=== PATIENT | male | born 1955 | race Two or more races ===

== ENCOUNTER 2019-09-27 10:35 | Inpatient (IN) | payer MEDICARE, MEDICAID ==
[~2019-09-27] VITALS: Ht 167.6 cm; Wt 90.7 kg
[2019-09-27] MEDS ORDERED: ONDANSETRON HCL 4MG/2ML INJ IV STA (11:17)
[2019-09-27] MEDS ORDERED: MORPHINE SULFATE 4 MG/ML CPJ (NOT FOR IM USE) IV STA (11:17)
[2019-09-27] MEDS ORDERED: VANCOMYCIN 1 G PREMIX 200 ML IV ONE (11:30)
[2019-09-27] MEDS ORDERED: PIPERACILLIN/TAZ 3.375G PREMIX 50 ML IV ONE (11:30)
[2019-09-27] MEDS ORDERED: SODIUM CHLORIDE 0.9% 1000ML BAG (SEPSIS BOLUS) IV ONE (11:30)
[2019-09-27 12:12] LABS: INR 0.9; PROTHROMBIN TIME 10.1 sec (9.6-11.0)
[2019-09-27 12:14] LABS: BASOPHILS % 0.5 % (0.0-2.0); EOSINOPHILS % 0.5 % (0.0-5.0); HEMATOCRIT. 35.8 % (42.0-52.0); HEMOGLOBIN. 12.4 g/dL (14.0-18.0); LYMPHOCYTES % 9.9 % (20.0-50.0); MEAN CORPUSCULAR VOLUME 89.5 fL (80.0-94.0); MONOCYTES % 11.5 % (2.0-8.0); NEUTROPHILS % 77.6 % (40.0-76.0); PLATELET 267 x1000/uL (130-400); RED CELL DISTRIBUTION WIDTH 11.8 % (11.6-14.6)
[2019-09-27 12:19] LABS: CHLORIDE 107 mEq/L (98-107)
[2019-09-27 12:34] LABS: CLARITY URINE CLEAR (CLEAR); COLOR URINE YELLOW (YELLOW); KETONES URINE NEGATIVE (NEGATIVE); LEUKOCYTE ESTERASE URINE NEGATIVE (NEGATIVE); NITRITE URINE NEGATIVE (NEGATIVE); OCCULT BLOOD URINE NEGATIVE (NEGATIVE); PROTEIN URINE NEGATIVE (NEGATIVE); SPECIFIC GRAVITY URINE 1.018 (1.005-1.030)
[2019-09-27] MEDS ORDERED: KETOROLAC 30MG/ML VIAL IV ONE (12:45)
[2019-09-27] MEDS ORDERED: MORPHINE SULFATE 2 MG/ML CPJ (NOT FOR IM USE) IV PRN (13:00)
[2019-09-27] MEDS ORDERED: ACETAMINOPHEN 325MG TABLET PO PRN ×2 (13:00→23:00)
[2019-09-27] MEDS ORDERED: ONDANSETRON HCL 4MG/2ML INJ IV PRN ×2 (13:00→23:00)
[2019-09-27] MEDS: HYDROCODONE/ACETAMINOPHEN 10/325MG TABLET PO PRN ×2 (16:12→23:56)
[2019-09-27] MEDS ORDERED: LORAZEPAM 2MG/ML CPJ IV PRN (23:00)
[2019-09-27] MEDS ORDERED: CLONIDINE 0.1MG TABLET PO PRN (23:00)
[2019-09-28] MEDS ORDERED: VANCOMYCIN 1 G PREMIX 200 ML IV NR (01:30)
[2019-09-28] MEDS ORDERED: ENOXAPARIN 40MG/0.4ML SYR SUBCUT SCH (01:30)
[2019-09-28] MEDS: SODIUM CHLORIDE 0.9% 1,000 ML IV SCH ×2 (02:06→22:35)
[2019-09-28 04:00] VITALS: BP 124/88
[2019-09-28 04:25] VITALS: BP 124/88
[2019-09-28] MEDS: HYDROCODONE/ACETAMINOPHEN 10/325MG TABLET PO PRN (05:00)
[2019-09-28] MEDS ORDERED: CARV25TA47 MT (05:15)
[2019-09-28] MEDS ORDERED: ASPI-1497 MT (05:15)
[2019-09-28] MEDS ORDERED: ESOM40CA MT (05:15)
[2019-09-28 08:00] VITALS: BP 135/90
[2019-09-28 08:18] LABS: *AMPHETAMINES SCREEN URINE NEGATIVE (NEGATIVE); *BARBITURATES SCREEN URINE NEGATIVE (NEGATIVE); *BENZODIAZEPINES SCREEN URINE NEGATIVE (NEGATIVE); *COCAINE SCREEN URINE PRESUMTIVE POSITIVE (NEGATIVE); METHADONE URINE SCREEN NEGATIVE (NEGATIVE)
[2019-09-28 08:19] LABS: CANNABINOID URINE SCREEN NEGATIVE (NEGATIVE); OPIATES URINE SCREEN PRESUMTIVE POSITIVE (NEGATIVE); PHENCYCLIDINE URINE SCREEN NEGATIVE (NEGATIVE)
[2019-09-28 09:24] LABS: BASOPHILS % 0.4 % (0.0-2.0); EOSINOPHILS % 1.1 % (0.0-5.0); HEMATOCRIT. 35.9 % (42.0-52.0); HEMOGLOBIN. 12.2 g/dL (14.0-18.0); LYMPHOCYTES % 7.7 % (20.0-50.0); MEAN CORPUSCULAR HEMOGLOBIN 30.7 pg (28.0-32.0); MEAN CORPUSCULAR VOLUME 90.4 fL (80.0-94.0); MEAN PLATELET VOLUME 9.7 fl (7.4-10.4); MONOCYTES % 9.5 % (2.0-8.0); NEUTROPHILS % 81.3 % (40.0-76.0); PLATELET 240 x1000/uL (130-400); RED BLOOD CELL COUNT 3.97 mill/uL (4.7-6.1); RED CELL DISTRIBUTION WIDTH 12.1 % (11.6-14.6)
[2019-09-28 09:54] LABS: CHLORIDE 106 mEq/L (98-107)
[2019-09-28] MEDS: MORPHINE SULFATE 2 MG/ML CPJ (NOT FOR IM USE) IV PRN (11:34)
[2019-09-28] MEDS ORDERED: LIDOCAINE HCL 1% 20ML VIAL (Pyxis) INJ ONE (11:58)
[2019-09-28] MEDS ORDERED: BUPIVACAINE/EPINEPH/PF 0.25%/0.0005 10ML ONE (11:58)
[2019-09-28] MEDS ORDERED: BACITRACIN 50,000 UNITS/VIAL ONE (11:59)
[2019-09-28] MEDS ORDERED: BUPIVACAINE HCL 0.5% (5MG/ML) 50ML ONE (11:59)
[2019-09-28] MEDS ORDERED: VANCOMYCIN HCL 1 GM/VIAL ONE (11:59)
[2019-09-28] MEDS ORDERED: LIDOCAINE HCL/EPINEPHRINE 1%-EPI 1:100,000 20 ML VIAL ONE (11:59)
[2019-09-28 12:00] VITALS: BP 149/94
[2019-09-28] MEDS ORDERED: NORMAL SALINE 0.9% 10 ML SYR ONE (12:00)
[2019-09-28] MEDS ORDERED: ROPIVACAINE HCL 10MG/ML 20 ML VIAL EPI ONE (12:57)
[2019-09-28] MEDS ORDERED: FENTANYL CITRATE/PF 50MCG/ML 2ML VIAL ONE (12:58)
[2019-09-28] MEDS ORDERED: MIDAZOLAM HCL 2 MG/2 ML VIAL ONE (12:58)
[2019-09-28] MEDS ORDERED: PROPOFOL 200MG/20ML VIAL IV ONE (12:58)
[2019-09-28] MEDS ORDERED: METOCLOPRAMIDE HCL 10MG/2ML VIAL ONE (12:59)
[2019-09-28] MEDS ORDERED: SUCCINYLCHOLINE CHLORIDE 200MG/10ML IV ONE (12:59)
[2019-09-28] MEDS ORDERED: LIDOCAINE HCL/PF 1% 10 MG/ML 5ML VIAL ONE (12:59)
[2019-09-28] MEDS ORDERED: GLYCOPYRROLATE 0.2 MG/ML 2ML VIAL ONE (12:59)
[2019-09-28] MEDS ORDERED: ONDANSETRON HCL 4MG/2ML INJ ONE (12:59)
[2019-09-28] MEDS: VANCOMYCIN 1 G PREMIX 200 ML IV SCH (13:00)
[2019-09-28] MEDS ORDERED: ALBUMIN HUMAN 12.5G/250ML (5%) IV ONE (13:38)
[2019-09-28] MEDS ORDERED: SODIUM CHLORIDE 0.9% 1,000 ML IV SCH (14:15)
[2019-09-28] MEDS ORDERED: ONDANSETRON HCL 4MG/2ML INJ IV PRN (14:15)
[2019-09-28] MEDS ORDERED: MEPERIDINE HCL/PF 25MG/ML CPJ IV PRN (14:15)
[2019-09-28] MEDS ORDERED: MORPHINE SULFATE 2 MG/ML CPJ (NOT FOR IM USE) IV PRN (14:15)
[2019-09-28] MEDS ORDERED: HYDROMORPHONE HCL/PF 2MG/ML CPJ IV PRN (14:15)
[2019-09-28 16:00] VITALS: BP 131/89
[2019-09-28 20:00] VITALS: BP 104/57
[2019-09-29] VITALS: BP 133/95
[2019-09-29] MEDS: MORPHINE SULFATE 2 MG/ML CPJ (NOT FOR IM USE) IV PRN (00:09)
[2019-09-29] MEDS: VANCOMYCIN 1 G PREMIX 200 ML IV SCH ×2 (01:08→13:16)
[2019-09-29] MEDS: HYDROCODONE/ACETAMINOPHEN 5/325MG TABLET PO PRN ×2 (02:26→09:16)
[2019-09-29 04:00] VITALS: BP 129/76
[2019-09-29] MEDS: SODIUM CHLORIDE 0.9% 1,000 ML IV SCH ×2 (07:30→18:14)
[2019-09-29 08:00] VITALS: BP 135/93
[2019-09-29 09:11] LABS: CHLORIDE 106 mEq/L (98-107)
[2019-09-29] MEDS: ENOXAPARIN 30MG/0.3ML SYR SUBCUT SCH ×2 (09:11→20:26)
[2019-09-29 12:00] VITALS: BP 139/85
[2019-09-29] MEDS: HYDROCODONE/ACETAMINOPHEN 10/325MG TABLET PO PRN ×3 (13:56→22:13)
[2019-09-29 16:00] VITALS: BP 140/95
[2019-09-29 20:00] VITALS: BP 137/94
[2019-09-30] VITALS: BP 122/82
[2019-09-30] MEDS: VANCOMYCIN 1 G PREMIX 200 ML IV SCH ×2 (01:49→15:19)
[2019-09-30] MEDS: SODIUM CHLORIDE 0.9% 1,000 ML IV SCH ×3 (01:49→22:33)
[2019-09-30] MEDS: HYDROCODONE/ACETAMINOPHEN 10/325MG TABLET PO PRN ×4 (02:16→21:34)
[2019-09-30 04:00] VITALS: BP 138/97
[2019-09-30 08:00] VITALS: BP 126/82
[2019-09-30] MEDS: ENOXAPARIN 30MG/0.3ML SYR SUBCUT SCH ×2 (09:11→21:03)
[2019-09-30 12:00] VITALS: BP 120/70
[2019-09-30 16:00] VITALS: BP 128/88
[2019-09-30 20:00] VITALS: BP 106/65
[2019-09-30] MEDS: MORPHINE SULFATE 2 MG/ML CPJ (NOT FOR IM USE) IV PRN (21:22)
[2019-10-01] VITALS: BP 124/84
[2019-10-01] MEDS: VANCOMYCIN 1 G PREMIX 200 ML IV SCH ×2 (02:46→12:35)
[2019-10-01 04:00] VITALS: BP 121/78
[2019-10-01] MEDS: SODIUM CHLORIDE 0.9% 1,000 ML IV SCH (09:30)
[2019-10-01] MEDS: HYDROCODONE/ACETAMINOPHEN 10/325MG TABLET PO PRN (10:12)
[2019-10-01] MEDS: ENOXAPARIN 30MG/0.3ML SYR SUBCUT SCH (10:13)
[2019-10-01] MEDS ORDERED: OXYCODONE HCL/ACETAMINOPHEN 5/325MG TABLET PO PRN (11:30)
[2019-10-01 12:00] VITALS: BP 123/82
[2019-10-01] MEDS ORDERED: OXYC-515 MT (13:09)
[2019-10-01] MEDS ORDERED: SULF1TAB48 MT (13:09)
[2019-10-01 16:00] VITALS: BP 125/86
[2019-10-01 18:03] VITALS: BP 125/86
== END 2019-10-01 18:53 | disposition home health service (06) | DRG 854 ==
LOC: ER 10:35 → 6EST 12:38 → EDBEDREQ 12:46 → EDBEDREQTM 22:12 → EDBEDREQSVC 22:12 → SUPCPDRO 22:46 → ENRESERV 09-28 03:52
PROVIDERS: ADMIT Internal Medicine Nephrology; ATTEND Internal Medicine Nephrology
PROC: 0JDH0ZZ Extraction of Left Lower Arm Subcutaneous Tissue and Fascia, Open Approach (ICD-10-PCS; principal; 2019-09-28)
PROC: 0X9C0ZZ Drainage of Left Elbow Region, Open Approach (ICD-10-PCS; 2019-09-28)
DX: A41.9 Sepsis, unspecified organism (principal); L02.414 Cutaneous abscess of left upper limb; E44.1 Mild protein-calorie malnutrition; L03.114 Cellulitis of left upper limb; M00.9 Pyogenic arthritis, unspecified; E66.9 Obesity, unspecified; D64.9 Anemia, unspecified; E78.5 Hyperlipidemia, unspecified; I10 Essential (primary) hypertension; K21.9 Gastro-esophageal reflux disease without esophagitis; M19.90 Unspecified osteoarthritis, unspecified site; F14.10 Cocaine abuse, uncomplicated; E78.00 Pure hypercholesterolemia, unspecified; F11.10 Opioid abuse, uncomplicated; Z71.3 Dietary counseling and surveillance; Z71.51 Drug abuse counseling and surveillance of drug abuser; Z68.32 Body mass index [BMI] 32.0-32.9, adult
CPT/HCPCS: 36415; 71045; 73080; 73200; 73221; 80048; 80053; 80202; 80305; 81003; 83605; 84145; 84484; 85025; 85651; 86140; 87070; 87075; 87077; 93005; 97162; 99291; A4565; J0171; J0330; J1650; J1885; J2250; J2270; J2405; J2704; J2765; J2795; J3010; J3370; J3490; J7030; P9041